=== PATIENT | female | born 1930 | race Caucasian/White ===

== ENCOUNTER 2017-10-09 14:34 | Inpatient (IN) | payer SELFPAY ==
[~2017-10-09] VITALS: Ht 152.4 cm; Wt 43.7 kg
[~2017-10-09 14:34] MED LIST: CLINDAMYCIN HC300 MG PO; DUONEB3 ML NEB; FER300 PO; GLU850 PO; LAC PO; LANTUS SOLOS100 U/M1 SQ; LASIX20 MG PO; LEVAQUIN750 MG PO; NEURONTIN100 MG PO; SMZ-TMP1 TA1 PO; THERAGRAN-M1 TA4 PO; VITC PO
[2017-10-09 15:26] LABS: PLATELET COUNT 213 x10^3mcL (130-400)
[2017-10-09 15:33] LABS: CALCIUM 9.1 mg/dL (8.5-10.1); CARBON DIOXIDE 24.5 mmol/L (21-32); CHLORIDE SERUM 104 mmol/L (98-107); CREATININE SERUM 1.8 mg/dL (0.6-1.0); GLUCOSE SERUM 381 mg/dL (74-106); POTASSIUM SERUM 4.4 mmol/L (3.5-5.1); SODIUM SERUM 141 mmol/L (136-145)
[2017-10-09 15:45] LABS: RED CELL DISTRIBUTION WIDTH 15.1 % (11.5-14.5)
[2017-10-09 15:49] LABS: CK-MB < 0.5 ng/mL (0-3.6); CREATINE KINASE 21 U/L (26-192)
[2017-10-09 15:52] LABS: ALKALINE PHOSPHATASE 73 U/L (46-116); ALT/SGPT 37 U/L (14-59); AST/SGOT 82 U/L (15-37); BILIRUBIN TOTAL 0.6 mg/dL (0.20-1.00); TOTAL PROTEIN, SERUM 7.9 g/dL (6.4-8.2)
[2017-10-09 16:00] LABS: microscopic required? YES; urine erythrocyte 1+ (NEGATIVE)
[2017-10-09 16:00] LABS: ALBUMIN 2.3 g/dL (3.4-5.0)
[2017-10-09 16:41] LABS: BAND NEUTROPHIL 18 % (0-10); BASOPHIL 0 % (0-2); MONOCYTE 3 % (0-7); SEGMENTED NEUTROPHILS 73 % (37-75)
[2017-10-09 16:41] LABS: PHOSPHOROUS 2.3 mg/dL (2.5-4.9)
[2017-10-09 16:42] LABS: PLATELET MORPHOLOGY LARGE PLATELET SEEN; rbc morphology (normal/abnorm) NORMAL (NORMAL)
[2017-10-09 16:46] LABS: CHOLESTEROL/HDL RATIO 6.8
[2017-10-09 16:47] LABS: FREE T4 0.85 ng/dL (0.76-1.46); FREE THYROXINE INDEX 1.6 ug/dL (1.4-4.5); T3 TOTAL 0.35 ng/mL; T4(THYROXINE) 4.4 ug/dL (4.7-13.3)
[2017-10-09 17:39] VITALS: BP 123/63
[2017-10-09 17:59] VITALS: BP 151/72
[2017-10-09 19:00] VITALS: BP 125/53
[2017-10-09 19:35] VITALS: BP 123/52
[2017-10-09 19:47] LABS: BILIRUBIN DIRECT 0.36 mg/dL (0.0-0.2); BILIRUBIN TOTAL 0.5 mg/dL (0.20-1.00); TOTAL PROTEIN, SERUM 6.5 g/dL (6.4-8.2)
[2017-10-09 19:50] LABS: ALBUMIN 1.9 g/dL (3.4-5.0)
[2017-10-09 20:01] VITALS: BP 131/58
[2017-10-09 20:52] VITALS: BP 131/58
[2017-10-10] VITALS (9 sets, daily range): BP systolic 107–156; BP diastolic 51–78
[2017-10-10 06:51] LABS: CALCIUM 8.3 mg/dL (8.5-10.1); CARBON DIOXIDE 23.9 mmol/L (21-32); CHLORIDE SERUM 110 mmol/L (98-107); CREATININE SERUM 1.8 mg/dL (0.6-1.0); GLUCOSE SERUM 344 mg/dL (74-106); MAGNESIUM 1.8 mg/dL (1.8-2.4); POTASSIUM SERUM 3.6 mmol/L (3.5-5.1); SODIUM SERUM 146 mmol/L (136-145)
[2017-10-10 06:55] LABS: PLATELET COUNT 180 x10^3mcL (130-400)
[2017-10-10 07:28] LABS: RED CELL DISTRIBUTION WIDTH 14.9 % (11.5-14.5)
[2017-10-10 11:05] LABS: ATYPICAL LYMPH 1 %; BAND NEUTROPHIL 25 % (0-10); BASOPHIL 0 % (0-2); SEGMENTED NEUTROPHILS 72 % (37-75)
[2017-10-10 11:06] LABS: PLATELET MORPHOLOGY PLATELETS DECREASED; rbc morphology (normal/abnorm) ABNORMAL (NORMAL)
[2017-10-11] VITALS (7 sets, daily range): BP systolic 107–161; BP diastolic 52–65; Ht 152.4 cm; Wt 43.7 kg
[2017-10-12 05:09] VITALS: BP 110/47
[2017-10-12 07:57] VITALS: BP 111/50
[2017-10-12 18:57] VITALS: BP 137/41
[2017-10-12 22:15] VITALS: BP 125/37
[2017-10-13 05:14] VITALS: BP 104/25
[2017-10-13 16:53] VITALS: BP 99/28
[2017-10-13 21:06] VITALS: BP 101/34
[2017-10-14 06:02] VITALS: BP 118/31
[2017-10-14 09:25] VITALS: BP 100/29
== END 2017-10-14 16:49 | disposition expired | DRG 871 ==
LOC: ED 14:34 → DU 15:19 → MU 10-13 10:30 → DU 10-13 14:20
PROVIDERS: Emergency Medicine; Family Medicine Sports Medicine
PROC: 5A09457 Assistance with Respiratory Ventilation, 24-96 Consecutive Hours, Continuous Positive Airway Pressure (ICD-10-PCS; principal; 2017-10-09)
DX: A41.9 Sepsis, unspecified organism (principal); J69.0 Pneumonitis due to inhalation of food and vomit; G93.41 Metabolic encephalopathy; N17.0 Acute kidney failure with tubular necrosis; E43 Unspecified severe protein-calorie malnutrition; J96.01 Acute respiratory failure with hypoxia; Z68.1 Body mass index [BMI] 19.9 or less, adult; Z66 Do not resuscitate; R65.20 Severe sepsis without septic shock; E11.65 Type 2 diabetes mellitus with hyperglycemia; I46.9 Cardiac arrest, cause unspecified; I07.1 Rheumatic tricuspid insufficiency; Z51.5 Encounter for palliative care; K74.60 Unspecified cirrhosis of liver; E83.39 Other disorders of phosphorus metabolism; E78.1 Pure hyperglyceridemia; E02 Subclinical iodine-deficiency hypothyroidism; D64.9 Anemia, unspecified; Z96.641 Presence of right artificial hip joint; E86.0 Dehydration; Z86.73 Personal history of transient ischemic attack (TIA), and cerebral infarction without residual deficits; Z90.49 Acquired absence of other specified parts of digestive tract
CPT/HCPCS: 36600; 83880; 84439; J0456; J0696; J1940; J1956; J2060; J2270; J3490; J7030; J7042; J7050; J7620; Q0092